=== PATIENT | female | born 1985 | race Caucasian/White ===

== ENCOUNTER 2019-03-04 18:56 | Observation (INO) | payer OTHER ==
[~2019-03-04] VITALS: Ht 157.5 cm; Wt 84.0 kg
[2019-03-04 20:22] VITALS: BP 110/66
== END 2019-03-04 20:30 | disposition home or self-care (01) ==
LOC: 4S 18:56
PROVIDERS: ADMIT Obstetrics & Gynecology; ATTEND Obstetrics & Gynecology
DX: O09.523 Supervision of elderly multigravida, third trimester (principal); Z3A.35 35 weeks gestation of pregnancy
CPT/HCPCS: 81002; G0378

== ENCOUNTER 2019-03-09 18:12 | Observation (INO) | payer OTHER ==
[~2019-03-09] VITALS: Ht 157.5 cm; Wt 84.4 kg
[2019-03-09] MEDS ORDERED: RINGERS SOLUTION,LACTATED 1,000 ML IV ONE (18:15)
[2019-03-09 18:49] VITALS: BP 122/75
== END 2019-03-09 21:10 | disposition home or self-care (01) ==
LOC: 4S 18:12
PROVIDERS: ADMIT Obstetrics & Gynecology; ATTEND Obstetrics & Gynecology
DX: O09.523 Supervision of elderly multigravida, third trimester (principal); Z3A.35 35 weeks gestation of pregnancy
CPT/HCPCS: 76805; 81002; G0378

== ENCOUNTER 2019-03-23 21:43 | Observation (INO) | payer OTHER ==
[~2019-03-23] VITALS: Ht 157.5 cm; Wt 84.4 kg
[2019-03-26 21:29] VITALS: BP 113/75
== END 2019-03-26 21:50 | disposition home or self-care (01) ==
LOC: 4S 03-26 21:06
PROVIDERS: ADMIT Obstetrics & Gynecology; ATTEND Obstetrics & Gynecology
DX: O09.523 Supervision of elderly multigravida, third trimester (principal); Z3A.38 38 weeks gestation of pregnancy
CPT/HCPCS: 81002; G0378

== ENCOUNTER 2019-04-02 16:00 | Inpatient (IN) | payer OTHER ==
[~2019-04-02] VITALS: Ht 157.5 cm; Wt 83.9 kg
[2019-04-02] MEDS ORDERED: PREN-217 PO (17:28)
[2019-04-02 17:33] VITALS: BP 112/78
[2019-04-02] MEDS ORDERED: OXYTOCIN 30 UNITS/LACT RINGERS 500 ML IV ONE (18:03)
[2019-04-02] MEDS ORDERED: RINGERS SOLUTION,LACTATED 1,000 ML IV PRN (18:03)
[2019-04-02] MEDS ORDERED: CITRIC ACID/SODIUM CITRATE 30 ML SOLUTION UDCUP PO PRN (18:15)
[2019-04-02] MEDS ORDERED: METOCLOPRAMIDE HCL 5 MG/ML 2 ML VIAL IVP PRN (18:15)
[2019-04-02] MEDS ORDERED: METHYLERGONOVINE MALEATE 0.2 MG/ML VIAL IM PRN (18:15)
[2019-04-02] MEDS ORDERED: LIDOCAINE/PF 1% 30 ML VIAL INJ PRN (18:15)
[2019-04-02] MEDS ORDERED: DINOPROSTONE 10 MG VAGINAL SUPPOSITORY VG ONE (18:30)
[2019-04-02 18:36] LABS: BASOPHILS % (AUTO) 0.3 % (0.0-2.0); EOSINOPHILS % (AUTO) 0.5 % (1.0-6.0); HEMOGLOBIN 13.2 g/dL (12.0-16.0); LYMPHOCYTES # (AUTO) 1.4 K/uL (1.0-4.8); LYMPHOCYTES % (AUTO) 14.8 % (22.0-44.0); MEAN CORPUSCULAR HEMOGLOBIN 30.6 pg (26.0-34.0); MEAN CORPUSCULAR HGB CONC 33.8 G/dL (31.0-37.0); MEAN CORPUSCULAR VOLUME 90 fL (80-100); MONOCYTES # (AUTO) 0.6 K/uL (0.1-1.0); MONOCYTES % (AUTO) 6.6 % (2.0-9.0); NEUTROPHILS # (AUTO) 7.6 K/uL (1.8-7.7); NEUTROPHILS % (AUTO) 77.8 % (40.0-70.0); PLATELET COUNT (AUTO)-OB 344 K/uL (150-450); RED BLOOD CELL COUNT(AUTO) 4.32 MIL/uL (4.00-5.20)
[2019-04-02] MEDS: RINGERS SOLUTION,LACTATED 1,000 ML IV SCH (19:13)
[2019-04-02] MEDS ORDERED: OXYGEN THERAPY IH SCH (20:00)
[2019-04-02] MEDS ORDERED: ACETAMINOPHEN 325 MG TABLET PO PRN (22:45)
[2019-04-03] MEDS: RINGERS SOLUTION,LACTATED 1,000 ML IV SCH (02:10)
[2019-04-03] MEDS: BUTORPHANOL TARTRATE 2 MG/ML VIAL IVP PRN ×2 (02:52→05:37)
[2019-04-03] MEDS ORDERED: BUPIVACAINE HCL/PF 0.25% 10 ML VIAL ONE (06:26)
[2019-04-03] MEDS ORDERED: ROPIVACAINE HCL/PF 0.2% 100 ML ED ONE (06:26)
[2019-04-03] MEDS ORDERED: -PHARMACY NOTE- MISC ONE (06:30)
[2019-04-03] MEDS ORDERED: BUPIVACAINE 0.25%/EPI 1:200,000/PF 10 ML VIAL ONE (07:29)
[2019-04-03] MEDS ORDERED: BENZOCAINE 20%/MENTHOL 56 GM SPRAY CANISTER TP PRN (09:00)
[2019-04-03] MEDS ORDERED: LANOLIN 7 GM OINTMENT TP PRN (09:00)
[2019-04-03] MEDS ORDERED: ACETAMINOPHEN/CODEINE 300-30 MG TABLET PO PRN (09:00)
[2019-04-03] MEDS ORDERED: GLYCERIN/WITCH HAZEL LEAF 40 PADS JAR TP PRN (09:00)
[2019-04-03] MEDS: IBUPROFEN 800 MG TABLET PO SCH ×3 (10:41→23:02)
[2019-04-03] MEDS ORDERED: IBUP-2071 PO (10:52)
[2019-04-03] MEDS: ACETAMINOPHEN/CODEINE 300-30 MG TABLET PO PRN ×2 (15:36→19:46)
[2019-04-03] MEDS: MAGNESIUM HYDROXIDE SUSPENSION 30 ML UDCUP PO SCH (21:15)
[2019-04-04] MEDS: IBUPROFEN 800 MG TABLET PO SCH (05:33)
[2019-04-04 05:36] VITALS: BP 107/70
[2019-04-04] MEDS: MAGNESIUM HYDROXIDE SUSPENSION 30 ML UDCUP PO SCH (08:11)
[2019-04-04] MEDS ORDERED: MEASLES/MUMPS/RUBELLA VACCINE, LIVE 0.5 ML/VIAL SQ ONE (09:00)
[2019-04-04] MEDS ORDERED: SENNA/DOCUSATE SODIUM 8.6-50 MG TABLET PO ONE (09:45)
[2019-04-04] MEDS ORDERED: DSS100 PO (09:53)
== END 2019-04-04 11:00 | disposition home or self-care (01) | DRG 560 ==
LOC: 4S 16:00 → OBSVTOIN 16:00
PROVIDERS: ADMIT Obstetrics & Gynecology; ATTEND Obstetrics & Gynecology
PROC: 10907ZC Drainage of Amniotic Fluid, Therapeutic from Products of Conception, Via Natural or Artificial Opening (ICD-10-PCS; principal; 2019-04-03)
PROC: 10D07Z6 Extraction of Products of Conception, Vacuum, Via Natural or Artificial Opening (ICD-10-PCS; 2019-04-03)
PROC: 0HQ9XZZ Repair Perineum Skin, External Approach (ICD-10-PCS; 2019-04-03)
PROC: 3E0R3BZ Introduction of Anesthetic Agent into Spinal Canal, Percutaneous Approach (ICD-10-PCS; 2019-04-03)
PROC: 00HU33Z Insertion of Infusion Device into Spinal Canal, Percutaneous Approach (ICD-10-PCS; 2019-04-03)
DX: O69.81X0 Labor and delivery complicated by cord around neck, without compression, not applicable or unspecified (principal); O34.33 Maternal care for cervical incompetence, third trimester; O70.0 First degree perineal laceration during delivery; O76 Abnormality in fetal heart rate and rhythm complicating labor and delivery; O66.5 Attempted application of vacuum extractor and forceps; Z3A.39 39 weeks gestation of pregnancy; Z37.0 Single live birth
CPT/HCPCS: 85461; 86850; 86870; 86900; 86901; 90707; J0595; J2795; J3490; J7120